=== PATIENT | female | born 1980 | race Caucasian/White ===

== ENCOUNTER 2017-11-08 07:02 | Emergency (ER) | payer OTHER ==
[~2017-11-08] VITALS: Ht 165.1 cm; Wt 81.6 kg
[2017-11-08 08:32] VITALS: BP 128/80
== END 2017-11-08 08:36 | disposition home or self-care (01) ==
LOC: FSED 07:02
DX: J02.0 Streptococcal pharyngitis (principal)
CPT/HCPCS: 87400; 99282